=== PATIENT | female | born 1925 | race Caucasian/White ===

== ENCOUNTER → 2016-12-19 | Outpatient (CLI) | payer MEDICARE ==
[2016-10-17 08:25] VITALS: BP 186/83
[~2016-12-19] MED LIST: ALPR0.254 PO; CHOL100013 PO; CHOL20002 PO; CITA40TA5 PO; CRAN1CAP3 PO; FERR-26 PO; HYDR-2762 PO; HYDR-971 PO; IOHEXOL 240 MG/ML 50ML VIAL. PO ONE; IOHEXOL 300 MG/ML 75 ML VIAL IV ONE; LEVO50TA5 PO; LEVO75TA5 PO; MELO-150 PO; MULT-245 PO; PANT40TA5 PO; PREN1TAB26 PO; SIMV40TA3 PO
--- NOTE | 2016-12-20 08:09 | RAD ---
Exam performed: CT abdomen pelvis with contrast. History: Generalized abdominal pain for 3 weeks. Date of service: 12/19/16. Comparison: None available Technique: Contiguous helical acquisitions are obtained through the abdomen and pelvis during intravenous administration of 75 cc of Omnipaque 300. Sagittal and coronal reformatted images are obtained and reviewed. Findings: Linear left basilar atelectasis. Reticular nodular and streaky opacities in the right lung base. The visualized heart is normal. The liver, spleen, gallbladder and pancreas appears grossly normal. Both adrenal glands and bilateral kidneys are normal in size with symmetric excretion of contrast via both kidneys. There is no hydronephrosis or nephrolithiasis. Aorta demonstrates diffuse atheromatous calcification. Small bowel loops are nondilated and unremarkable. Extensive scattered stool throughout the colon. The urinary bladder is partially decompressed. The scattered stool in the rectosigmoid region. Spondylotic changes and multilevel disc degenerative changes involving the lumbar spine. Postoperative changes seen at L1/2, L2/3, L3/4 and L4/5 level. Compression fracture deformity of T12 vertebral body with adjacent vacuum disc phenomena. Status post total right hip arthroplasty. Impression: 1. No acute intra-abdominal or pelvic process detected. 2. Extensive scattered stool throughout the colon. Correlate clinically for constipation. 3. Advanced degenerative changes involving the lumbar spine with a compression fracture of T12, age indeterminate. This is new since the previous CT scan of 06/06/14. Correlate with area of focal pain and if indicated evaluation with MRI lumbar spine radiographs of benefit. PQRS Compliance Statement: One or more of the following individualized dose reduction techniques were utilized for this examination: 1. Automated exposure control 2. Adjustment of the mA and/or kV according to patient size 3. Use of iterative reconstruction technique
== END | disposition home or self-care (01) ==
LOC: CT 14:06
PROVIDERS: ATTEND Family Medicine
DX: R10.84 Generalized abdominal pain (principal)
CPT/HCPCS: 74177; Q9966; Q9967

== ENCOUNTER → 2016-12-27 | Outpatient (CLI) | payer MEDICARE ==
[2016-10-17 08:25] VITALS: BP 186/83
[~2016-12-27] MED LIST changes: -IOHEXOL 240 MG/ML 50ML VIAL. PO ONE; -IOHEXOL 300 MG/ML 75 ML VIAL IV ONE
--- NOTE | 2016-12-27 11:00 | KCIC ---
PROCEDURE Lumbar spine CT without contrast. HISTORY Back pain. TECHNIQUE Computed tomographic images of the lumbar spine were obtained without contrast. One or more of the following individualized dose reduction techniques were utilized for this examination: 1. Automated exposure control; 2. Adjustment of the mA and/or kV according to patient size; 3. Use of iterative reconstruction technique. COMPARISON Radiographs dated 02/29/2016. FINDINGS There is a severe compression fracture at T12 with near complete loss of vertebral body height and approximately 5 mm retropulsion of the posterior cortex into the central canal resulting in mild central canal stenosis. There is gas within the main fracture line and within the adjacent disc spaces, suggesting a relatively acute or subacute etiology. This may be superimposed on a chronic fracture. There is lumbar dextroscoliosis centered at L2. There is interbody fusion at L1 through L5. There is slight retrolisthesis of L2 on L3 and L3 on L4 and L5 on S1. There is bone demineralization. There is suspected mild cardiomegaly. There is bilateral basilar atelectasis. There is renal atrophy. There is a defect within the right iliac bone due to a bone graft harvest site. There are laminectomy changes at L3 and L4 and partial laminectomy changes at L1 and L2. No suspicious lytic or sclerotic osseous lesion is seen. At T12-L1, there is retropulsion of the posterior cortex into the central canal resulting in mild central canal stenosis. At L1-L2, there is a broad-based posterior disc protrusion superimposed on endplate osteophytosis and partial bony bridging. There is mild facet arthropathy. There is moderate central canal stenosis. At L2-L3, there is endplate osteophytosis and partial bony bridging. There is mild facet arthropathy. There is no stenosis. At L3-L4, there is endplate osteophytosis and partial bony bridging. There is mild facet arthropathy. There is mild left foraminal stenosis. At L4-L5, there is endplate osteophytosis and partial bony bridging. There is moderate facet arthropathy. There is mild bilateral foraminal stenosis. At L5-S1, there is a disc bulge and right lateral predominant endplate remodeling. There is moderate facet arthropathy. There is moderate right foraminal stenosis. IMPRESSION 1. Severe T12 compression fracture with slight retropulsion of the cortex resulting in mild central canal stenosis. There is gas within the main fracture line, suggesting a possible acute or subacute fracture superimposed on a chronic fracture. 2. Interbody fusion with incomplete bony bridging at L1 through L5, described in detail above. 3. Multilevel degenerative change, predominately at L1-L2. There is a broad-based posterior disc protrusion and endplate osteophytosis with partial bony bridging resulting in moderate central canal stenosis at this level. 4. Lumbar scoliosis and multilevel listhesis. 5. Bone demineralization. Electronically signed by: Francine Hanks (Dec 27, 2016 10:59:36)
== END | disposition home or self-care (01) ==
LOC: KCIC CT 10:19
PROVIDERS: ATTEND Family Medicine
DX: M81.0 Age-related osteoporosis without current pathological fracture (principal)
CPT/HCPCS: 72131

== ENCOUNTER → 2017-01-22 | Outpatient (CLI) | payer MEDICARE ==
[2016-10-17 08:25] VITALS: BP 186/83
[~2017-01-22] MED LIST changes: +ACET325T21 PO; +ACET500T68 PO; +CITA20TA9 PO
--- NOTE | 2017-01-23 02:03 | CONS ---
DATE OF CONSULTATION: 01/22/2017 INITIAL CONSULTATION FOR PAIN CLINIC CHIEF COMPLAINT: Mid and low back pain. HISTORY OF PRESENT ILLNESS: This is an 89-year-old female who presents with a history of pain in the mid low back since about 3 months ago. The patient reports she fell in the bathroom and hurt her back at that time or slightly before that. The patient is accompanied by both of her 2 daughters who are helping with the chronological order of her history. The patient reports she falls at times. She lives in assisted living home, has had some physical therapy over the last year, which helped a little with the back pain, but gradually gotten worse in the mid and low back as well as some in the upper back as well. The patient reports it is intermittent in intensity, but always present with a stabbing sensation, also very sharp and aching with changing positions, especially standing from a sitting position or vice versa. The patient reports it does not awaken her from sleep at night. She feels better lying down. It does not affect her ability to walk significantly. She is using a walker to ambulate. The patient reports no loss of bowel or bladder incontinence, but does have some increased urinary frequency she reports with the low back pain. The patient reports that her disability rating is from 0 to 10, 10 being the worst, 5 with recreation, 7 with social activity and self-care and 5 with life support activities, 0 with occupational behaviors and sexual behavior. The patient did have a CT scan of the lumbar spine showing severe T12 compression fracture with slight retropulsion of the cortex resulting in mild central canal stenosis with gas in the main fracture line suggesting a possible acute or subacute fracture, superimposed on a chronic fracture, previous interbody fusion with incomplete bony bridging at L1 through L5 with multiple degenerative change predominantly at L1-L2 with broad-based posterior disk protrusion and end-plate osteophytosis with a partial bony bridging resulting in possible moderate central canal stenosis at that level. Also L5-S1 shows interbody fusion with disk bulges, right lateral prominent endplate remodeling with moderate right foraminal stenosis as well. The patient reports no loss of motor function in the lower extremities, but they are very weak and fatigued easily, but this has been present since before her fall. The back pain was as bad as it is now. The patient rates her pain as a 5 on a scale 10 currently, but it can be higher or lower depending on activity, much worse with walking, standing, and change in positions. PAST MEDICAL HISTORY: Significant for hypothyroidism, hearing aids, previous uterine cancer with hysterectomy, gastroesophageal reflux disease, blood clots in the left calf dizziness, arthritis, or osteoporosis. PREVIOUS SURGERY: Includes cervical fusion in 3 areas, lumbar interbody fusion from L1 through L5, right femur fracture about 5 years ago, partial hip replacement and previous hysterectomy, tonsillectomy, and appendectomy. CURRENT MEDICATIONS: Include multivitamins, acetaminophen, cranberry concentrate, vitamin D1, pantoprazole, hydrocodone, levothyroxine, and citalopram. ALLERGIES: THE PATIENT IS ALLERGIC TO SULFA. FAMILY HISTORY: Significant for cancer in 2 sisters. SOCIAL HISTORY: The patient does not drink alcohol. Does not smoke, [facility] and is apparently. REVIEW OF SYSTEMS: The patient's review of systems is positive for those items mentioned in history of present illness. All systems were reviewed and otherwise negative. It is complete, full and well documented on the patient's chart. PHYSICAL EXAMINATION: VITAL SIGNS: Today, the patient's blood pressure is 172/75, pulse 83, respirations 18, temperature 98.2 degrees Fahrenheit, height is 5 feet 2 inches, and weighs 111 pounds. GENERAL: The patient is awake, alert, oriented, appropriate, very pleasant demeanor. Again, the patient is accompanied by 2 of her daughters. HEENT: Head examination shows normocephalic and atraumatic. The patient wears eyeglasses. Oral cavity, mucous membranes are moist and pink. Dentition is intact. Extraocular muscles are intact and symmetrical. NECK: Shows supple without palpable lymphadenopathy noted. Swallow reflex is symmetrical. Neck shows full rotational motion of cervical spine including rotation greater than 45 degrees, right and left lateral as well as full extension, full forward flexion without pain reported or difficulty in rotation. CHEST: Shows normal on inspection. Breath sounds are clear to auscultation bilaterally. HEART: Shows S1 and S2 clear. No murmurs are auscultated. ABDOMEN: Soft, flat, nontender, and nondistended. No palpable organomegaly. No rebound or guarding demonstrated. BACK: Shows spine grossly midline. Some slight rightward scoliosis in the upper thoracic spine. Lumbar lordotic curvature is markedly flattened. Thoracic kyphosis is slightly increased and normal-appearing cervical lordotic curvature. Previously well-healed surgical scar noted and fairly extensive noted throughout the lumbar distribution, but is well healed with inspection, shows symmetric paraspinous musculature in the lumbar distribution throughout, with palpation shows moderate tenderness diffusely in the paraspinous musculature in the mid and low thoracic as well as the lumbar paraspinous muscles, which appears symmetrical, but are very firm and tender with palpation diffusely. There is also significant tenderness over the lower and middle thoracic spinous processes that is most significantly at the lowest level of the thoracic spine with direct palpation with significant sharp pain with palpation over the spinous processes in the approximate T10, T11 and T12 regions. There is some spinous processes missing in the lumbar distribution from previous surgery. No tenderness over the sacrum and the sacroiliac regions even with deeper palpation. The patient does show some limited rotation, limited extension of the lumbar spine, but not secondary pain secondary to limitation of motion. Right and left lateral rotation elicits no pain and is rotated about 10 degrees right and left. Forward flexion is performed at about 35-40 degrees without pain as well. Lower extremities show deep tendon reflexes at 1+ in the patellar and tendo calcaneus tendons. Motor exam is intact with approximately 4 on a scale of 5, but equal dorsiflexion, extension, quadriceps and hamstring flexion and is symmetrical. Peripheral pulses are 1+ posterior tibial and dorsalis pedis pulses. No peripheral edema is noted. EXTREMITIES: Lower extremities, no clubbing or cyanosis. They are equal in color and appearance. The patient is able to stand with difficulty standing from a sitting position, reports pain in the mid and low back with this maneuver also is using a walker to help her stand up and ambulate with a very shuffling gait, dependent upon the walker to ambulate. IMPRESSION: 1. This is a 81-year-old female with fairly recent history, several months of pain in the mid and low back. 2. CT scan of lumbar spine as noted. 3. History of arthritis and osteoporosis. 4. Hypothyroidism. PLAN: Options were discussed with the patient and the patient's daughters including conservative medical management, physical therapy, interventional techniques and we discussed the possibility of interventional radiology evaluation of the fairly acute appearing T12 compression fracture on CT scan dated 12/27/2016 with significant pain over this region in the spinous processes. The patient would like to investigate this. We will make the arrangements and once this is evaluated, the patient will return for further evaluation as necessary. If pain is persistent and she does have L1-L2 disk protrusion as well as L5-S1 disk protrusion with some stenosis at these levels. The patient will follow up after interventional radiologic evaluation and we will reassess her at that time. USAMA BARAHONA MD DR: TAWNY/naldo JOB#: [id number] / [id number] CORINNE Bains MD
== END | disposition home or self-care (01) ==
LOC: PNCL 12:47
PROVIDERS: ATTEND Anesthesiology
DX: M54.5 Low back pain (principal)
CPT/HCPCS: G0463

== ENCOUNTER → 2017-01-24 | Day surgery (SDC) | payer MEDICARE ==
[~2017-01-24] VITALS: Ht 157.5 cm; Wt 50.3 kg
[~2017-01-24] MED LIST changes: +CEFAZOLIN 1GM IVPB FOR OMNI 50 ML IV ONE; +KETAMINE HCL 500 MG/10 ML VIAL. ONE; +LABETALOL 20 MG/4 ML DISP.SYRIN. ONE; +LIDOCAINE 1% / SOD BICARB 8.4% 20 ML VIAL. IJ ONE; +LIDOCAINE 2% 100 MG/5 ML SYRINGE. ONE; +MIDAZOLAM HCL/PF 2 MG/2 ML VIAL. ONE; +ONDANSETRON PF 4 MG/2 ML VIAL. IV ONE; +PROPOFOL 100 ML IV ONE
[2017-01-24 13:16] LABS: BASO % 1 % (0-3); EOS % 1 % (0-3); HEMATOCRIT 39.7 % (36.0-47.0); LYMPH # 2.2 x10^3/uL (1.0-4.8); LYMPH % 28 % (24-48); MEAN CORPUSCULAR HEMOGLOBIN 30 pg (25-35); MEAN CORPUSCULAR HGB CONC 33 g/dL (31-37); MEAN CORPUSCULAR VOLUME 93 fL (79-100); MONO % 10 % (0-9); NEUT % 61 % (31-73); PLATELET COUNT 218 x10^3/uL (140-400); RED BLOOD COUNT 4.27 x10^6/uL (3.50-5.40); RED CELL DISTRIBUTION WIDTH 12.8 % (11.5-14.5); WHITE BLOOD COUNT 7.9 x10^3/uL (4.0-11.0)
[2017-01-24 13:27] LABS: PROTHROMBIN TIME PATIENT 12.6 SEC (11.7-14.0)
[2017-01-24 13:46] VITALS: BP 213/75
--- NOTE | 2017-01-24 14:16 | RAD ---
CT thoracic spine without IV contrast . History: Interscapular back pain. Comparison: CT chest 07/10/2015. CT lumbar spine 12/27/2016. Technique: CT of the thoracic spine was performed without intravenous contrast. Axial, sagittal, and coronal reconstructions were obtained. One or more of the following individualized dose reduction techniques were utilized for the study: Automated exposure control Adjustment of mA and/or kV according to patient's size Use of iterative reconstruction technique. Findings: The T12 level again demonstrates severe vertebral body compression fracture and loss of height, unchanged from December 2016 study. No other thoracic fracture is identified. Evaluation of spinal contents is limited by lack of intrathecal contrast, but no appreciable osseous spinal canal narrowing is identified. Multilevel degenerative disc disease is seen with small marginal disc osteophytes are noted. There is mild levoconvex scoliosis of the upper thoracic spine. L1-2 discectomy changes are seen. Incompletely seen is spinal fusion hardware involving the lower cervical spine.] Both lungs demonstrate presence of multiple irregular pulmonary nodules, some of which can be seen on previous study, but some which are new. Nodules measure up to 9 mm (series 2 image 64). Impression: 1. A previously identified severe T12 compression fracture is unchanged. 2. No new thoracic vertebral fracture identified.
--- NOTE | 2017-01-24 15:49 | PDOC ---
Exam Gallery Or Museum Attendant Gallery Or Museum Attendant Allan Machine Icer Machine Icer Ivana Wells Pre-Procedure Diagnosis Pre-Procedure Diagnosis Chronic, but progressing T12 osteoporotic compression fracture, mild on L-spine X-rays from 02/29/16, and severe and comminuted on CT L-spine from 12/27/16. Severe, lifestyle limiting LBP. T12 vertebroplasty requested by Pain Management. Post-Procedure Diagnosis Post-Procedure Diagnosis Same Procedure Performed Procedure Performed Fluoro guided T12 vertebroplasty. Type of Anesthesia Type of Anesthesia MAC by anesthesia Estimated Blood Loss EBL: Minimal Condition of Patient Condition of Patient Sedated. Hypertensive. No apparent complication, apart from expected inferior extension of opacified into T12-L1 disc space thru a large inferior end plate cortical defect. Disposition Disposition From IR to PACU for recovery. Then discharge home with family, if no problems. F/u with Pain Management clinic. Full report to follow. ALIDA VIERA MD Jan 24, 2017 15:48
[2017-01-24 17:45] VITALS: BP 145/58
--- NOTE | 2017-01-25 07:33 | RAD ---
Fluoro guided T12 Vertebroplasty Indication: 89-year-old female with advanced osteoporotic T12 vertebral body compression fracture, with associated severe low back pain. Fluoro time: 24.6 minutes Kerma-Area Product: 30 Gycm2 Moderate sedation: Mac anesthesia was provided by the department of anesthesiology. Antibiotic: A single dose of Ancef was administered within 1 hour of the procedure start time. Consent: The procedure was explained in its entirety to the patient and/or the patient's designated loan representative by a member of the treatment team. This included a discussion of risks and benefits and commonly accepted alternatives to the procedure, as well as expected consequences of no treatment at all. Discussion of risks included, but was not limited to, those that are most frequent and those that are rare, but possibly severe or life-threatening, as well as the possibility of unforeseen complications. Sterility: All elements of maximal sterile barrier technique, including the use of a cap, mask, sterile gown, sterile gloves, large sterile sheet, appropriate hand hygiene, and 2% chlorhexidine for cutaneous antisepsis (or acceptable alternative antiseptic per current guidelines) were utilized. Procedure: Informed consent was obtained from the patient and her family. She was placed prone on the angiography table. Midline thoracolumbar junction was prepped and draped in the usual sterile fashion, utilizing all elements of maximal sterile barrier technique, as described above. Conscious sedation was provided with IV Versed and Fentanyl. 1 gram Ancef was given IV, prophylactically. Using aseptic technique, local anesthesia, and direct fluoroscopic guidance, an 11 gauge vertebroplasty needle was successfully introduced into right anterior aspect of the T12 vertebral body, via right transpedicular approach. Similarly, using aseptic technique, local anesthesia, and direct fluoroscopic guidance, an additional 11-gauge vertebroplasty needle was introduced into left anterior aspect of the T12 vertebral body, via left transpedicular access. Contrast opacified polymethylmethacrylate was then slowly and carefully introduced through both vertebroplasty needles, under strict fluoroscopic control. There was resulting good filling of the right T12 vertebral body, without significant extraosseous extravasation of opacified cement. However, there was incomplete filling of left T12 vertebral body, due to prompt extension of opacified cement through a large inferior endplate defect into the T12-L1 intervertebral disc space. The vertebroplasty needles were removed and sterile dressings were applied. Patient tolerated the procedure well, without apparent complication. She was transported from the angiography suite to the postanesthesia care unit in stable condition. Impression: Fluoroscopy guided T12 vertebroplasty, performed via bilateral trans pedicular access, as described.
== END | disposition home or self-care (01) ==
LOC: INTRAD 12:44
PROVIDERS: ATTEND Radiology Vascular & Interventional Radiology
DX: S22.088A Other fracture of T11-T12 vertebra, initial encounter for closed fracture (principal); E78.00 Pure hypercholesterolemia, unspecified; I95.9 Hypotension, unspecified; K21.9 Gastro-esophageal reflux disease without esophagitis; E03.9 Hypothyroidism, unspecified; F41.9 Anxiety disorder, unspecified; F32.9 Major depressive disorder, single episode, unspecified; D64.9 Anemia, unspecified; M19.90 Unspecified osteoarthritis, unspecified site; X58.XXXA Exposure to other specified factors, initial encounter; Y99.9 Unspecified external cause status; Y92.9 Unspecified place or not applicable; Y93.9 Activity, unspecified; Z90.710 Acquired absence of both cervix and uterus; Z87.440 Personal history of urinary (tract) infections; Z96.641 Presence of right artificial hip joint
CPT/HCPCS: 22510; 36415; 72128; 85027; 85610; C1758; C1892; J2704; J3490

== ENCOUNTER → 2017-02-12 | Outpatient (CLI) | payer MEDICARE ==
[2017-01-24 17:45] VITALS: BP 145/58
[~2017-02-12] MED LIST changes: -CEFAZOLIN 1GM IVPB FOR OMNI 50 ML IV ONE; +IOHEXOL 180 MG/ML 10 ML VIAL. ONE; -KETAMINE HCL 500 MG/10 ML VIAL. ONE; -LABETALOL 20 MG/4 ML DISP.SYRIN. ONE; -LIDOCAINE 1% / SOD BICARB 8.4% 20 ML VIAL. IJ ONE; -LIDOCAINE 2% 100 MG/5 ML SYRINGE. ONE; -MIDAZOLAM HCL/PF 2 MG/2 ML VIAL. ONE; -ONDANSETRON PF 4 MG/2 ML VIAL. IV ONE; -PROPOFOL 100 ML IV ONE; +methylPREDNISolone ACETATE 40 MG/ML VIAL. ONE; +methylPREDNISolone ACETATE 80 MG/ML VIAL. ONE
--- NOTE | 2017-02-13 02:05 | PAIN ---
DATE OF SERVICE: 02/12/2017 DIAGNOSES: 1. Compression fracture at T12. 2. Low back pain with lumbar degenerative disk disease and post-lumbar laminectomy syndrome. HISTORY OF PRESENT ILLNESS: The patient is an 89-year-old female who returns for followup status post initial evaluation and referral for kyphoplasty, which she has had performed at T12. The patient reports she is still having some significant pain in the upper part of the low back after the kyphoplasty and vertebroplasty procedure. The patient reports otherwise she is doing well. No new motor or sensory deficits. She has significant pain with walking, standing, change in positions, even with prolonged sitting, rated as a 9 on a scale of 10 at its worst, currently a 5 on a scale of 10. Today, the patient reports no new motor or sensory deficits. Pain is in the mid back in the upper part of the low back, it is off and on, it is not constant, but it is aching and dull and fairly well controlled with the hydrocodone. The patient has been taking on average one tablet a day with fairly good control about 75% by her estimation without significant side effects except for some constipation. The patient reports otherwise she is doing well. No new motor or sensory deficits. No new bowel or bladder incontinence or other complaints. PHYSICAL EXAMINATION: VITAL SIGNS: Shows blood pressure 177/85, pulse 75, respirations are 18, temperature 98.0 degrees Fahrenheit, height is 5 feet 2 inches, weighs 109 pounds. GENERAL: The patient is awake, alert, oriented, appropriate, very pleasant demeanor. HEENT: Shows normocephalic and atraumatic. Extraocular muscles are intact and symmetrical. The patient is wearing eyeglasses. Oral cavity: Mucous membranes moist and pink. Dentition is intact. NECK: Shows anterior throat supple without palpable lymphadenopathy noted. Swallow reflex is symmetrical. CHEST: Shows normal on inspection. Breath sounds are clear to auscultation bilaterally. HEART: Shows S1 and S2 clear. ABDOMEN: Soft, nontender, nondistended. BACK: Shows spine grossly in the midline with significant scoliosis noted in the thoracic and upper lumbar distribution to the right with well-healed surgical scars again noted in the midline. The patient's spinous processes shows some moderate tenderness with palpation throughout the lower thoracic and upper lumbar distribution without radiation. Paraspinous musculature is very firm but without significant asymmetry. EXTREMITIES: Lower extremities show deep tendon reflexes 1+ in the patellar and tendo calcaneus tendons. Motor exam is approximately 4 on a scale 5 with dorsiflexion, extension, quadriceps and hamstring flexion, but is symmetrical and equal. PLAN: Options were discussed with the patient and the patient's daughter who accompanies her to visit today, and we will proceed with a lumbar epidural steroid injection with fluoroscopic guidance. Risks were again discussed including but not limited to bleeding, infection, possibility of epidural hematoma, subsequent neurologic compromise, dural puncture, headaches, spinal cord and/or nerve damage, side effects of steroid medication and poor results regarding pain control. The patient understands and wishes to proceed. The patient will return to clinic in approximately 2 weeks for followup. He was counseled on his return appointment, activity level and side effects to be aware of. DIAGNOSIS: Low back pain with lumbar degenerative disk disease and post-lumbar laminectomy syndrome. PROCEDURE: Lumbar epidural steroid injection in translaminar approach at the L1-L2 level using C-arm fluoroscopic guidance under sterile prep and drape using local anesthetic. MEDICATIONS INJECTED: Depo-Medrol 120 mg plus 10 mL of preservative-free normal saline and 2 mL of Isovue for contrast. CONDITION AT DISCHARGE: Stable. The patient tolerated the procedure well, had no complications. USAMA BARAHONA MD DR: TAWNY/naldo JOB#: [id number] / [id number]
== END | disposition home or self-care (01) ==
LOC: PNCL 08:19
PROVIDERS: ATTEND Anesthesiology
DX: M51.36 Other intervertebral disc degeneration, lumbar region (principal); M96.1 Postlaminectomy syndrome, not elsewhere classified; E78.00 Pure hypercholesterolemia, unspecified; I10 Essential (primary) hypertension; K21.9 Gastro-esophageal reflux disease without esophagitis; M19.90 Unspecified osteoarthritis, unspecified site; F41.9 Anxiety disorder, unspecified; F32.9 Major depressive disorder, single episode, unspecified; D64.9 Anemia, unspecified; Z90.710 Acquired absence of both cervix and uterus; Z87.440 Personal history of urinary (tract) infections
CPT/HCPCS: 62323; J1030; J1040

== ENCOUNTER → 2017-06-18 | Outpatient (CLI) | payer MEDICARE ==
[2017-01-24 17:45] VITALS: BP 145/58
[~2017-06-18] MED LIST changes: -IOHEXOL 180 MG/ML 10 ML VIAL. ONE; -MELO-150 PO; +MELO15TA23 PO; -methylPREDNISolone ACETATE 40 MG/ML VIAL. ONE; -methylPREDNISolone ACETATE 80 MG/ML VIAL. ONE
--- NOTE | 2017-06-18 12:05 | KCIC ---
SHOULDER 2+V RIGHT History: Right shoulder pain after reaching maximum chair Comparison: None. Findings: 3 views of the right shoulder submitted. There is narrowing of the acromiohumeral distance. No acute fracture or dislocation is identified. There is mild degenerative change of the acromioclavicular joint. There is mild degenerative change of the humeral head. Impression: 1. No acute fracture or dislocation is identified. 2. There is narrowing of the acromiohumeral distance which can be associated with or predispose to rotator cuff injury. Electronically signed by: Mak Richardson MD (06/18/2017 12:01 PM) [id number]
== END | disposition home or self-care (01) ==
LOC: KCIC 11:29
PROVIDERS: ATTEND Nurse Practitioner Family
DX: M25.511 Pain in right shoulder (principal)
CPT/HCPCS: 73030

== ENCOUNTER → 2017-08-21 | Outpatient (CLI) | payer MEDICARE ==
[2017-01-24 17:45] VITALS: BP 145/58
[~2017-08-21] MED LIST changes: +IOHEXOL 180 MG/ML 10 ML VIAL. ONE; +methylPREDNISolone ACETATE 40 MG/ML VIAL. ONE; +methylPREDNISolone ACETATE 80 MG/ML VIAL. ONE
--- NOTE | 2017-08-21 20:12 | PAIN ---
DATE OF SERVICE: 08/21/2017 DIAGNOSES: Lumbar radiculopathy with lumbar degenerative disk disease and post-lumbar laminectomy syndrome. HISTORY OF PRESENT ILLNESS: The patient is an 89-year-old female who returns for followup, last seen 02/12/2017. The patient underwent lumbar epidural steroid injection and then was sent for vertebroplasty of the T12 vertebra. The patient did well with both of these, reports pain was better after the vertebroplasty as well as after the epidural injection for about 6 months. The pain now is returning, but is new and is more in the lower extremities, in ends of low back, posterior gluteus, posterior thigh, posterior lower legs, worse with activity, standing, walking, changing positions, becoming as high as a 9 on a scale of 10, is 8 on average, is 5 on a scale of 10 today, which is its least. She describes it as aching, radiating, constant, becoming more noticeable. The patient has had previous lumbar fusion from L1 to L5 in the distant past from similar symptoms. The patient reports no new motor or sensory deficits, but is much worse with standing, walking, changing positions, awakens her from sleep occasionally, but not more than once or twice a night at the most. The patient usually repositions and gets back to sleep. The patient reports no new motor or sensory deficits, no new bowel or bladder incontinence. PAST MEDICAL HISTORY: Significant for hypothyroidism, hearing aids, uterine cancer with hysterectomy, gastroesophageal reflux, deep venous thromboses, arthritis, osteoporosis. PAST SURGICAL HISTORY: Includes lumbar fusion L1 to L5, right femur fracture with a partial hip replacement, and again hysterectomy, tonsillectomy and appendectomy. MEDICATIONS: Current medications are updated and well documented on the patient's chart. ALLERGIES: THE PATIENT IS ALLERGIC TO SULFA. FAMILY HISTORY: Significant for cancer in 2 of her sisters. SOCIAL HISTORY: The patient does not drink alcohol, does not smoke, lives in an assisted living area and is . REVIEW OF SYSTEMS: Positive for those items mentioned in the history of present illness. All systems reviewed and otherwise negative. It is complete, full and well documented on the patient's chart. PHYSICAL EXAMINATION: VITAL SIGNS: Today, the patient's blood pressure is 120/64, pulse 88, respirations 16, temperature is 97.6 degrees Fahrenheit. Weight is 108 pounds. GENERAL: The patient is awake, alert, oriented, appropriate, very pleasant demeanor. HEENT: Head shows normocephalic, atraumatic. Extraocular movements are intact, symmetrical. Oral cavity, mucous membranes are moist and pink. Dentition is intact. NECK: Shows anterior throat supple. CHEST: Shows normal on inspection. Breath sounds are clear to auscultation bilaterally. HEART: Shows S1 and S2 clear. ABDOMEN: Soft, nontender, nondistended. No palpable organomegaly is noted. No rebound or guarding demonstrated. BACK: Shows spine grossly in the midline. Slight exaggeration of thoracic kyphosis and some flattening of the lumbar lordotic curvature. Previously well-healed surgical scarring is noted in the lumbar distribution. The patient shows no significant tenderness over the sacrum or sacroiliac regions. EXTREMITIES: Lower extremities show deep tendon reflexes at 1+ in the patellar and tendo calcaneus tendons are equal. Motor exam is approximately 4 on a scale 5 and symmetrical with dorsiflexion, extension, quadriceps and hamstring flexion. Peripheral pulses are 1+ posterior tibial and dorsalis pedis pulses. No peripheral edema is noted. Options were discussed with the patient and the patient's old chart was reviewed as her current medication regimen updated. Current review of systems updated today again as noted, and we will proceed with a caudal approach epidural steroid injection today with fluoroscopic guidance. Risks were again discussed including, but not limited to bleeding, infection, possibility of epidural hematoma and subsequent neurologic compromise, dural puncture headaches, spinal cord and/or nerve damage, side effects of steroid medication and poor results regarding pain control. The patient understands and wishes to proceed. The patient will return to clinic in approximately 2 weeks for followup, was counseled on return appointment, activity level and side effects to be aware of. DIAGNOSIS: Lumbar radiculopathy with lumbar degenerative disk disease and post-lumbar laminectomy syndrome. PROCEDURE: Caudal approach epidural steroid injection using C-arm fluoroscopic guidance under sterile prep and drape using local anesthetic. MEDICATION INJECTED: A total of 120 mg Depo-Medrol plus 10 mL of preservative-free normal saline and 2 mL of Isovue contrast. CONDITION AT DISCHARGE: Stable. The patient tolerated the procedure well, had no complications. USAMA BARAHONA MD DR: [email or web address]/naldo JOB#: [id number] / [id number]
== END | disposition home or self-care (01) ==
LOC: PNCL 09:13
PROVIDERS: ATTEND Anesthesiology
DX: M51.16 Intervertebral disc disorders with radiculopathy, lumbar region (principal); M96.1 Postlaminectomy syndrome, not elsewhere classified; K21.9 Gastro-esophageal reflux disease without esophagitis; D64.9 Anemia, unspecified; F32.9 Major depressive disorder, single episode, unspecified; F41.9 Anxiety disorder, unspecified; E03.9 Hypothyroidism, unspecified; M19.90 Unspecified osteoarthritis, unspecified site; Z85.41 Personal history of malignant neoplasm of cervix uteri; Z96.641 Presence of right artificial hip joint; Z90.710 Acquired absence of both cervix and uterus
CPT/HCPCS: 62323; J1030; J1040